=== PATIENT | female | born 1990 | race Caucasian/White ===

== ENCOUNTER 2018-04-25 23:23 | Emergency (ER) | payer OTHER ==
[2018-04-25 23:29] VITALS: TEMP 101.2; BMI 24.9
[2018-04-26] MEDS ORDERED: ACETAMINOPHEN 1000 MG/100 ML VIAL (NON FORMULARY) IVPB ONE (00:19)
[2018-04-26] MEDS ORDERED: diphenhydrAMINE HCL 25 MG CAPSULE (FP) PO ONE ×2 (00:19→00:28)
[2018-04-26] MEDS ORDERED: SODIUM CHLORIDE 1,000 ML IV STA (00:20)
--- NOTE | 2018-04-26 00:27 | PDOC ---
History of Present Illness - General History Source: Patient Exam Limitations: No Limitations - History of Present Illness Initial Comments: 04/26/18 00:27 The patient is a 27 year old female with no significant past medical history presents to the emergency department with an allergic reaction. The patient reports earlier in the day patient suffered a headache, unbearable, no relief with 2 dose of advil, went back to bed. Patient reports she woke up with a fever , chills, dizziness and a headache, Patients family member offered Amoxicillin for the pain, s/p patient noticed swelling to the lips. Patient reports associated concern of dysuria, and discolored urine. Patient states she is unable to tolerate food secondary to nausea. Denies cough or a headache. Denies chest pain or shortness of breath. Denies abdominal pain. Denies hematuria, frequency or urgency to urinate. Denies vertigo. Denies numbness, tingling or loss of sensation. Allergies: NKDA Social history: None reported Surgical history: None reported PCP: None reported <Joselyn Nickerson - Last Filed: 04/26/18 00:27> <Isela Juárez - Last Filed: 04/26/18 02:26> - General Chief Complaint: Allergic Reaction Stated Complaint: ALLERGIC REACTION Time Seen by Provider: 04/25/18 23:41 Past History <Joselyn Nickerson - Last Filed: 04/26/18 00:27> - Past Medical History COPD: No - Immunization History Immunization Up to Date: Yes - Suicide/Smoking/Psychosocial Hx Smoking History: Never smoked Hx Alcohol Use: No Drug/Substance Use Hx: No Substance Use Type: None <Isela Juárez - Last Filed: 04/26/18 02:26> - Past Medical History Allergies/Adverse Reactions: Allergies Allergy/AdvReac Type Severity Reaction Status Date / Time No Known Allergies Allergy Verified 04/25/18 23:29 Home Medications: Ambulatory Orders Cyclobenzaprine HCl [Flexeril -] 10 mg PO TID PRN #21 tablet 03/30/16 Naproxen [Naprosyn -] 500 mg PO BID PRN #28 tablet 03/30/16 Oxycodone HCl/Acetaminophen [Percocet 5-325 mg Tablet] 1 - 2 tab PO Q6H PRN #8 tab MDD 4 03/30/16 Acetaminophen [8Hr Muscle Ache-Pain] 650 mg PO TID PRN #20 tablet.er 04/26/18 Diphenhydramine HCl [Benadryl -] 25 mg PO Q6H PRN #20 capsule 04/26/18 Sulfamethoxazole/Trimethoprim [Bactrim Ds -] 1 tab PO BID #20 tablet 04/26/18 Review of Systems - Review of Systems Able to Perform ROS?: Yes Comments:: 04/26/18 00:30 CONSTITUTIONAL: (+) Fever, chills, and loss of appetite secondary to nausea. Absent: generalized weakness, malaise, HEENT: (+) Lip swelling. Absent: rhinorrhea, nasal congestion, throat pain, throat swelling, difficulty swallowing, mouth swelling, ear pain, eye pain, visual Changes CARDIOVASCULAR: Absent: chest pain, syncope, palpitations, irregular heart rate, lightheadedness , peripheral edema RESPIRATORY: Absent: cough, shortness of breath, dyspnea with exertion, orthopnea, wheezing, stridor, hemoptysis GASTROINTESTINAL: Absent: abdominal pain, abdominal distension, nausea, vomiting, diarrhea, constipation, melena, hematochezia GENITOURINARY: (+) dysuria. Absent: frequency, urgency, hesitancy, hematuria, flank pain, genital pain MUSCULOSKELETAL: Absent: myalgia, arthralgia, joint swelling SKIN: Absent: rash, itching, pallor HEMATOLOGIC/IMMUNOLOGIC: Absent: easy bleeding, easy bruising, lymphadenopathy, frequent infections ENDOCRINE: Absent: unexplained weight gain, unexplained weight loss, heat intolerance, cold intolerance NEUROLOGIC: (+) Dizziness. Absent: headache, focal weakness or paresthesias, unsteady gait, seizure, mental status changes, bladder or bowel incontinence PSYCHIATRIC: Absent: anxiety, depression, suicidal or homicidal ideation, hallucinations. <Joselyn Nickerson - Last Filed: 04/26/18 00:27> *Physical Exam - Vital Signs Last Vital Signs Temp Pulse Resp BP Pulse Ox 101.2 F H 120 H 18 130/82 98 04/25/18 23:26 04/25/18 23:26 04/25/18 23:26 04/25/18 23:26 04/25/18 23:26 - Physical Exam Comments: 04/26/18 00:30 GENERAL: tearful and upset. Febrile Well developed, well nourished. Awake and alert. No acute distress. HEENT: (+) Maxillary lip swelling. Normocephalic, atraumatic. PERRLA, EOMI. No conjunctival pallor. Sclera are non- icteric. Moist mucous membranes. Oropharynx is clear. NECK: Supple. Full ROM. No JVD. Carotid pulses 2+ and symmetric, without bruits. No thyromegaly. No lymphadenopathy. CARDIOVASCULAR: (+) tachycardia. Regular rate and rhythm. No murmurs, rubs, or gallops. Distal pulses are 2+ and symmetric. PULMONARY: No evidence of respiratory distress. Lungs clear to auscultation bilaterally. No wheezing, rales or rhonchi. ABDOMINAL: No CVA tenderness. Soft. Non-tender. Non-distended. No rebound or guarding. No organomegaly. Normoactive bowel sounds. MUSCULOSKELETAL Normal range of motion at all joints. No bony deformities or tenderness. No CVA tenderness. EXTREMITIES: No cyanosis. No clubbing. No edema. No calf tenderness. SKIN: Diaphoretic. Warm and dry. Normal capillary refill. No rashes. No jaundice. NEUROLOGICAL: Alert, awake, appropriate. Cranial nerves 2-12 intact. No deficits to light touch and temperature in face, upper extremities and lower extremities. No motor deficits in the in face, upper extremities and lower extremities. Normoreflexic in the upper and lower extremities. Normal speech. Toes are down- going bilaterally. Gait is normal without ataxia. PSYCHIATRIC: Cooperative. Good eye contact. Appropriate mood and affect. <Joselyn Nickerson - Last Filed: 04/26/18 00:27> - Vital Signs Last Vital Signs Temp Pulse Resp BP Pulse Ox 101.2 F H 120 H 18 130/82 98 04/25/18 23:26 04/25/18 23:26 04/25/18 23:26 04/25/18 23:26 04/25/18 23:26 <Isela Juárez - Last Filed: 04/26/18 02:26> ED Treatment Course - Medications Given in the ED: ED Medications Discontinued Medications Generic Name Dose Route Start Last Admin Trade Name Freq PRN Reason Stop Dose Admin Acetaminophen 1,000 mg 04/26/18 00:19 04/26/18 00:26 Ofirmev Injection - IVPB 04/26/18 00:20 1,000 mg ONCE ONE Administration Diphenhydramine HCl 25 mg 04/26/18 00:19 04/26/18 00:26 Benadryl - PO 04/26/18 00:20 25 mg ONCE ONE Administration <Joselyn Nickerson - Last Filed: 04/26/18 00:27> - LABORATORY CBC & Chemistry Diagram: 04/26/18 00:20 04/26/18 00:20 - Medications Given in the ED: ED Medications Discontinued Medications Generic Name Dose Route Start Last Admin Trade Name Carlos PRN Reason Stop Dose Admin Acetaminophen 1,000 mg 04/26/18 00:19 04/26/18 00:26 Ofirmev Injection - IVPB 04/26/18 00:20 1,000 mg ONCE ONE Administration Diphenhydramine HCl 25 mg 04/26/18 00:19 04/26/18 00:26 Benadryl - PO 04/26/18 00:20 25 mg ONCE ONE Administration <Isela Juárez - Last Filed: 04/26/18 02:26> *DC/Admit/Observation/Transfer - Attestations Scribe Attestion: 04/26/18 00:32 Documentation prepared by Joselyn Nickerson, acting as medical officer psychiatry for Isela Juárez MD. <Joselyn Nickerson - Last Filed: 04/26/18 00:27> <Isela Juárez - Last Filed: 04/26/18 02:26> Diagnosis at time of Disposition: Drug allergy UTI (urinary tract infection) Qualifiers: Urinary tract infection type: site unspecified Hematuria presence: without hematuria Qualified Code(s): N39.0 - Urinary tract infection, site not specified Fever Qualifiers: Fever type: unspecified Qualified Code(s): R50.9 - Fever, unspecified - Discharge Dispostion Disposition: HOME Condition at time of disposition: Stable - Prescriptions Prescriptions: Acetaminophen [8Hr Muscle Ache-Pain] 650 mg PO TID PRN #20 tablet.er PRN Reason: Pain Or Fever Diphenhydramine HCl [Benadryl -] 25 mg PO Q6H PRN #20 capsule PRN Reason: For Itching Sulfamethoxazole/Trimethoprim [Bactrim Ds -] 1 tab PO BID #20 tablet - Referrals Referrals: Francis Hopper MD [Staff Physician] - Caden Plata MD [Staff Physician] - - Patient Instructions Printed Discharge Instructions: DI for Urinary Tract Infection (UTI), DI for Adverse Drug Reaction -- Allergic, DI for Fever (Symptom) -- Adult Additional Instructions: 1. pickling machine operator your medications at the [facility] 2. stay hydrated,drink water,rest 3. For fever or pain ,take tylenol or ibuprofen 4. Follow up at [facility] if you do not have a regular physician 5. Return for any worsening symptoms 6. If you have any further swelling or itching,take benadryl 7. AVOID amoxicillin or any drugs in the penicillin family
[2018-04-26] MEDS ORDERED: ACETAMINOPHEN INJECTION 100 ML IVPB ONE (00:29)
[2018-04-26 00:34] LABS: URINE APPEARANCE CLOUDY; URINE BILIRUBIN NEGATIVE (<2.0 mg/dL); URINE COLOR YELLOW; URINE GLUCOSE (UA) NEGATIVE (NEGATIVE); URINE KETONE NEGATIVE (NEGATIVE); URINE NITRITE NEGATIVE (NEGATIVE); URINE UROBILINOGEN NEGATIVE mg/dL (0.2-1.0)
[2018-04-26 00:35] LABS: URINE LEUK ESTERASE 2+ (NEGATIVE); URINE PROTEIN 2+ (NEGATIVE)
[2018-04-26 00:51] LABS: URINE BACTERIA FEW /hpf (NONE SEEN); URINE MUCUS RARE
[2018-04-26 00:55] LABS: ALBUMIN 3.7 g/dl (3.4-5.0); ALK PHOS 70 U/L (45-117); ANION GAP 8 (8-16); BILIRUBIN,TOTAL 0.4 mg/dL (0.2-1.0); BLOOD UREA NITROGEN 11 mg/dL (7-18); CALCIUM 9.4 mg/dL (8.5-10.1); CHLORIDE 102 mmol/L (98-107); CO2 27 mmol/L (21-32); GLUCOSE,RANDOM 103 mg/dL (74-106); POTASSIUM 3.8 mmol/L (3.5-5.1); SGOT/AST 19 U/L (15-37); SGPT/ALT 16 U/L (12-78); SODIUM 137 mmol/L (136-145); TOT PROT 7.3 g/dl (6.4-8.2)
[2018-04-26 01:10] LABS: BASO % 0.4 % (0-2.0); EOS % 0.2 % (0-4.5); HEMATOCRIT 39.5 % (32.4-45.2); HEMOGLOBIN 13.5 GM/dL (10.7-15.3); LYMPH % 12.4 % (8-40); MCH 28.5 pg (25.7-33.7); MCHC 34.1 g/dl (32.0-36.0); MEAN CELL VOLUME 83.7 fl (80-96); MEAN PLT VOLUME 8.5 fl (7.5-11.1); MONO % 8.2 % (3.8-10.2); NEUT % 78.8 % (42.8-82.8); PLATELET COUNT 270 K/MM3 (134-434); RBC 4.71 M/mm3 (3.60-5.2); RDW 12.3 % (11.6-15.6); WHITE BLOOD COUNT 8.5 K/mm3 (4.0-10.0)
[2018-04-26] MEDS ORDERED: DEXAMETHASONE SOD PHOSPHATE 20 MG/5 ML VIAL IVPB STA (01:36)
[2018-04-26] MEDS ORDERED: DEXAMETHASONE SOD PHOSPHATE 10 MG/1 ML VIAL ONE (01:48)
[2018-04-26 02:41] VITALS: BP 105/58; PULSE 68
== END 2018-04-26 02:50 | disposition home or self-care (01) ==
LOC: JER 23:23
PROC: 3E0337Z Introduction of Electrolytic and Water Balance Substance into Peripheral Vein, Percutaneous Approach (ICD-10-PCS; principal; 2018-04-25)
PROC: 3E03329 Introduction of Other Anti-infective into Peripheral Vein, Percutaneous Approach (ICD-10-PCS; 2018-04-25)
PROC: 3E033NZ Introduction of Analgesics, Hypnotics, Sedatives into Peripheral Vein, Percutaneous Approach (ICD-10-PCS; 2018-04-25)
PROC: 3E0333Z Introduction of Anti-inflammatory into Peripheral Vein, Percutaneous Approach (ICD-10-PCS; 2018-04-25)
DX: N39.0 Urinary tract infection, site not specified (principal); R22.9 Localized swelling, mass and lump, unspecified; T36.0X5A Adverse effect of penicillins, initial encounter; Y92.038 Other place in apartment as the place of occurrence of the external cause
CPT/HCPCS: 36415; 80053; 81003; 81015; 84703; 85025; 87086; 87186; 96361; 96365; 96375; 99281-25; J0131; J7030